=== PATIENT | female | born 1955 | race Caucasian/White ===

== ENCOUNTER 2018-09-12 01:49 | Emergency (ER) | payer MEDICAID ==
[2018-09-12 02:26] VITALS: PULSE 95; RESP 16; TEMP 100.4; O2SAT 93
[2018-09-12 02:48] VITALS: BP 137/84
== END 2018-09-12 02:53 | disposition home or self-care (01) | DRG 607 ==
LOC: ED 01:49
DX: L30.8 Other specified dermatitis (principal)
CPT/HCPCS: 99282